=== PATIENT | male | born 1955 | race Hispanic/Latino ===

== ENCOUNTER 2025-05-07 07:15 | Emergency (ER) | payer OTHER, MEDICARE ==
[~2025-05-07] VITALS: Ht 170.2 cm; Wt 81.6 kg
[2025-05-07 07:26] VITALS: BP 160/66; PULSE 68; RESP 20; TEMP 98.3; O2SAT 97
[2025-05-07 07:36] LABS: BASOPHILS # (AUTO) 0.02 K/uL (0.00-0.20); BASOPHILS % (AUTO) 0.2 % (0.0-5.0); EOSINOPHILS # (AUTO) 0.04 K/uL (0.00-0.70); EOSINOPHILS % (AUTO) 0.5 % (0.0-8.0); IMMATURE GRANULOCYTE ABSOLUTE 0.05 K/uL (0-1); LYMPHOCYTES # (AUTO) 1.4 K/uL (1.0-4.8); LYMPHOCYTES % (AUTO) 15.8 % (21.0-51.0); MEAN CORPUSCULAR HEMOGLOBIN 32.9 pg (27.0-33.0); MEAN CORPUSCULAR HGB CONC 35.3 g/dL (32.0-36.0); MEAN CORPUSCULAR VOLUME 93.4 fL (79-99); MONOCYTES # (AUTO) 0.8 K/uL (0.1-1.0); MONOCYTES % (AUTO) 9.4 % (3.0-13.0); NEUTROPHILS # (AUTO) 6.5 K/uL (1.8-7.7); NEUTROPHILS % (AUTO) 73.5 % (40.0-77.0); PLATELET COUNT (AUTO) 273 K/uL (130-400); RED BLOOD CELL COUNT(AUTO) 4.07 MIL/uL (4.50-6.20); RED CELL DISTRIBUTION WIDTH 12.3 % (11.0-15.5); WHITE BLOOD COUNT (AUTO) 8.8 K/uL (4.8-10.8)
[2025-05-07 07:45] LABS: CREATININE 1.5 mg/dL (0.5-1.3); POTASSIUM 4.4 mmol/L (3.5-5.1)
[2025-05-07 08:04] LABS: RAPID GROUP A STREP negative (NEGATIVE)
[2025-05-07] MEDS: Solu-medROL 125MG VIAL IVP ONE (08:08)
[2025-05-07 08:09] LABS: SARS-CoV-2, RNA, NAAT NEGATIVE SARS CoV-2 (NEGATIVE)
[2025-05-07 08:14] LABS: INFLUENZA TYPE A Negative For Type A (NEGATIVE); INFLUENZA TYPE B Negative For Type B (NEGATIVE)
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
[2025-05-07] MEDS ORDERED: AMOX1TAB16 PO (10:42)
[2025-05-07] MEDS ORDERED: PRED5TAB PO (10:42)
--- NOTE | 2025-05-07 11:40 | HMCIMG ---
NECK SOFT TISSUE REASON: dysphagia. COMPARISON: None TECHNIQUE: 2 images of soft tissue neck were obtained. FINDINGS: Airway is patent. No evidence of radiopaque foreign body is seen. Degenerative changes of cervical spine are noted. IMPRESSION: Findings as described above.
--- NOTE | 2025-05-07 21:02 | HMCIMG ---
US SOFT TISSUE NECK REASON: lymph node swelling. COMPARISON: None TECHNIQUE: Soft tissue neck ultrasound study was performed. FINDINGS: Bilateral cervical lymph nodes are seen with largest on the right measuring 3.1 x 0.6 x 1.5 cm left measuring 3 x 1.7 x 2.3 cm. IMPRESSION: Cervical adenopathy as described above.
== END 2025-05-07 11:15 | disposition home or self-care (01) ==
LOC: EDH 07:15
DX: R59.1 Generalized enlarged lymph nodes (principal); E11.9 Type 2 diabetes mellitus without complications; E78.00 Pure hypercholesterolemia, unspecified; I10 Essential (primary) hypertension; Z20.822 Contact with and (suspected) exposure to COVID-19
CPT/HCPCS: 99285; 96374; 87635; 80048; 85025; 87880; 87804 ×2; 36415; 70360; 76536; J2919